=== PATIENT | female | born 1960 | race Two or more races ===

== ENCOUNTER 2019-01-12 05:56 | Day surgery (SDC) | payer OTHER ==
[~2019-01-12] VITALS: Ht 154.9 cm; Wt 59.0 kg
[2019-01-12] VITALS (10 sets, daily range): BP systolic 110–134; BP diastolic 62–82
[~2019-01-12 05:56] MED LIST: ESTRADIOL2 M1 PO; MULTIVITAMINS1 EAC2 ORAL; NALTREXONE HCL50 MG PO; PRILOSEC OTC20 MG ORAL; PROGESTERONE100 MG PO; PROSCAR5 MG ORAL; ZYRTEC-D TABLE1 EACH ORAL; plaquenil PO; viviscal PO
[2019-01-12] MEDS ORDERED: oxyCONTIN 20mg tab ORAL ONE (06:00)
[2019-01-12] MEDS ORDERED: celeBREX 200mg Cap **SURGERY PATIENTS ONLY ORAL ONE (06:00)
[2019-01-12] MEDS ORDERED: ceFAZolin 1gm IVPB IVPB ONE ×2 (06:00)
[2019-01-12] MEDS ORDERED: EPINEPHrine 1mg/1ml Amp ONE (06:59)
[2019-01-12] MEDS ORDERED: Ropivacaine 5mg/ml Vial 30ml INJ ONE (06:59)
[2019-01-12] MEDS ORDERED: LR 1000ml 1,000 ML IVLG SCH (07:02)
--- NOTE | 2019-01-12 07:07 | Anethesia Preoperative Eval ---
Anesthesia Pre-op PMH/ROS General Date of Evaluation: Jan 12, 2019 Time of Evaluation: 07:33 Anesthesiologist: Shawanda Singh ASA Score: ASA 2 Mallampati Score Class I : Soft palate, uvula, fauces, pillars visible Class II: Soft palate, uvula, fauces visible Class III: Soft palate, base of uvula visible Class IV: Only hard plate visible Mallampati Classification: Class II Surgeon: Jeffries Diagnosis: L Shoulder Pain L Shoulder Arthroscopy, RCR Anesthesia History: none Family History: no anesthesia problems Allergies: Coded Allergies: No Known Allergies (Unverified , 01/07/19) Medications: see eMAR Patient NPO?: Yes Past Medical History Pulmonary: Reports: asthma Gastrointestinal/Genitourinary: Reports: GERD Hematology/Immune: Reports: other - Lichen Planus PSxH Narrative: KENDRICK, Cholecystectomy, Hernia, R Shoulder SX Anesthesia Pre-op Phys. Exam Physician Exam Last Vital Signs Date Time Temp Pulse Resp B/P (MAP) Pulse Ox O2 Delivery O2 Flow Rate FiO2 01/12/19 06:40 Room Air 01/12/19 06:33 97.5 64 18 134/82 100 Constitutional: NAD Neurologic: CN 2-12 intact Cardiovascular: RRR Respiratory: CTA Gastrointestinal: S/NT/ND Airway Exam Mallampati Score: Class II MO: full ROM: limited Teeth: missing, intact Anesthesia Pre-op A/P Risk Assessment & Plan Assessment: ASA 2 Plan: GA, SED, GlideScope Go Status Change Before Surgery: No Pre-Antibiotics Dru Gram Ancef IV Given Within 1 Hr of Incision: Yes Time Given: 08:06 Efrain Rogers MD Jan 12, 2019 07:07
--- NOTE | 2019-01-12 07:07 | Pre-Procedure Note/Attestation ---
Pre-Procedure Note/Attestation Complete Prior to Procedure Planned Procedure: left Procedure Narrative: left shoulder scope sad mini joseph rtc repair Indications for Procedure Pre-Operative Diagnosis: left shoulder rtc tear Attestation I attest that I discussed the nature of the procedure; its benefits; risks and complications; and alternatives (and the risks and benefits of such alternatives ), prior to the procedure, with the patient (or the patient's legal printing supplies sales representative). I attest that, if there was a reasonable possibility of needing a blood transfusion, the patient (or the patient's legal printing supplies sales representative) was given the [facility] standardized written summary, pursuant to the Vadim Khanh Blood Safety Act ([place] Health and Safety Code # 1645, as amended). I attest that I re-evaluated the patient just prior to the surgery and that there has been no change in the patient's H&P, except as documented below: none Bishnu Leggett MD Jan 12, 2019 07:07
[2019-01-12] MEDS ORDERED: Dexamethasone 4mg/ml vial ONE (07:08)
[2019-01-12] MEDS ORDERED: Lidocaine 1% MPF 10mg/ml 5ml ONE (07:08)
[2019-01-12] MEDS ORDERED: Sodium Chloride 10ml vial INJ ONE (07:08)
[2019-01-12] MEDS ORDERED: Propofol 200mg/20ml IV ONE (07:08)
[2019-01-12] MEDS ORDERED: Bupivacaine w/Epi 0.5% 30ml Vial INJ ONE (07:14)
[2019-01-12] MEDS ORDERED: Midazolam 2mg/2ml Inj IVP PRN (07:15)
[2019-01-12] MEDS ORDERED: Metoclopramide 10mg/2ml Inj IVP PRN (07:15)
[2019-01-12] MEDS ORDERED: LORazepam Inj 2mg/ml 1ml IV PRN (07:15)
[2019-01-12] MEDS ORDERED: DiphenhydrAMINE 50mg/ml Inj IVP PRN (07:15)
[2019-01-12] MEDS ORDERED: Ketorolac 30mg Inj IV PRN ×2 (07:15)
[2019-01-12] MEDS ORDERED: Tylenol #3 tab (300mg/30mg) ORAL PRN (07:15)
[2019-01-12] MEDS ORDERED: Hydromorphone 0.5mg/0.5ml inj IVP PRN (07:15)
[2019-01-12] MEDS ORDERED: Atropine Sulfate 0.4mg/ml inj IVP PRN (07:15)
[2019-01-12] MEDS ORDERED: Meperidine 50mg/ml Inj(FOR RIGORS ONLY) IVP PRN (07:15)
[2019-01-12] MEDS ORDERED: HYDROcodone/Acetamin 5/325 tab ORAL PRN ×2 (07:15)
[2019-01-12] MEDS ORDERED: Labetalol 5mg/ml 20ml vial IV PRN (07:15)
[2019-01-12] MEDS ORDERED: HYDROcodone/Acetamin 7.5/325 tab ORAL PRN (07:15)
[2019-01-12] MEDS ORDERED: HYDROmorphone 1mg/ml Carpuject SUBQ PRN (07:15)
[2019-01-12] MEDS ORDERED: fentaNYL 100 mcg/2 mL IV PRN (07:15)
[2019-01-12] MEDS ORDERED: oxyCODONE HCL/Acetaminophen 5/325mg ORAL PRN (07:15)
[2019-01-12] MEDS ORDERED: Sterile Water Irrig 1000ml IRRIG ONE (07:30)
[2019-01-12] MEDS ORDERED: LR 1000ml ONE (07:30)
[2019-01-12] MEDS ORDERED: Pantoprazole Inj ONE (07:45)
[2019-01-12] MEDS ORDERED: NS Irrig 4000ml IRRIG ONE ×6 (08:16→09:24)
[2019-01-12] MEDS ORDERED: Alfentanil 2ml Inj ONE (08:39)
--- NOTE | 2019-01-12 08:49 | Immediate Post-Op Evaluation ---
Immediate Post-Op Evalulation Immediate Post-Op Evalulation Procedure: L Shoulder Arthroscopy Date of Evaluation: Jan 12, 2019 Time of Evaluation: 10:05 IV Fluids: 1000 LR Blood Products: 0 Estimated Blood Loss: 10 Urinary Output: 0 Blood Pressure Systolic: 127 Blood Pressure Diastolic: 64 Pulse Rate: 80 Respiratory Rate: 16 O2 Sat by Pulse Oximetry: 100 Temperature (Fahrenheit): 97 Pain Score (1-10): 2 Nausea: No Vomiting: No Complications 0 Patient Status: awake, reacts, patent, extubated, none Hydration Status: adequate Dru Gram Ancef IV Given Within 1 Hr of Incision: Yes Time Given: 08:06 Efrain Rogers MD Jan 12, 2019 08:49
--- NOTE | 2019-01-12 08:49 | 48 Hour Post Anesthesia Eval ---
Post Anesthesia Evaluation Procedure: L Shoulder Arthroscopy Date of Evaluation: Jan 12, 2019 Time of Evaluation: 12:13 Blood Pressure Systolic: 125 0: 64 Pulse Rate: 79 Respiratory Rate: 18 Temperature (Fahrenheit): 99 O2 Sat by Pulse Oximetry: 97 Airway: patent Nausea: No Vomiting: No Pain Intensity: 2 Hydration Status: adequate Cardiopulmonary Status: Stable Mental Status/LOC: patient returned to baseline Follow-up Care/Observations: 0 Post-Anesthesia Complications: 0 Follow-up care needed: ready to discharge Efrain Rogers MD Jan 12, 2019 08:49
--- NOTE | 2019-01-12 09:41 | Brief Operative Note ---
Immediate Post Operative Note Operative Note Chief Complaint: left shoulder pain Pre-op Diagnosis: left shoulder rtc tear Procedure: left shoulder scope, sad, mini joseph, rtc repair Post-op Diagnosis: same as pre-op Findings: consistent w/pre-op dx studies Surgeon: md lokesh Bailing Machine Operator: luis quach Anesthesiologist: md adrian Anesthesia: general Specimen: none Complications: none Condition: stable Fluids: ns Estimated Blood Loss: minimal Drains: none Implant(s) used?: Yes - biomet Bishnu Leggett MD Jan 12, 2019 09:41
[2019-01-12] MEDS ORDERED: Phenylephrine 10mg/ml Vial ONE (10:32)
[2019-01-12] MEDS ORDERED: D5 1/2NS 1,000 ML IV SCH (12:00)
--- NOTE | 2019-01-12 13:30 | Operative Note - Dictated ---
DATE OF OPERATION: 01/12/2019 PREOPERATIVE DIAGNOSES: 1. Left shoulder impingement. 2. Left shoulder rotator cuff tear. POSTOPERATIVE DIAGNOSES: 1. Left shoulder anterior as well as superior labral tearing without detachment of the glenoid. 2. Left shoulder full thickness 1-1/2 cm rotator cuff tear. 3. Left shoulder large bone spur with impingement. 4. Bone spur underneath the AC joint. PROCEDURE: 1. Left shoulder arthroscopy and extensive intra-articular shaving. 2. Left shoulder subacromial bursoscopy, bursectomy, and subacromial decompression. 3. Left shoulder mini Dania procedure (resection of inferior 30% of the distal end of the clavicle for coplaning). 4. Left shoulder debridement/repair of the anterior as well as superior labrum to a stable zone without anchor fixation. 5. Left shoulder arthroscopic rotator cuff repair using two Biomet 2.9 mm JuggerKnot anchors. SURGEON: Bishnu Leggett M.D. SCIENTIFIC DIVER: Violeta Pichardo PA-C. Subgrade Roller Operator was present during the actual operative portion of the case and was important and essential part of the operation. During the operation, the expanded function dental assistant held and operated the arthroscopic camera for visualization, assisted by manipulating the arm to help with visualization, and helped with essential parts of the repair process as necessary such as operating surgical instruments under surgeon supervision, suture management, and wound closures. ANESTHESIOLOGIST: Efrain Rogers M.D. ANESTHESIA: General LMA anesthesia. ESTIMATED BLOOD LOSS: Minimal. COMPLICATIONS: None. SURGICAL INDICATION: The patient is a 58-year old female, who sustained the above injury to her shoulder. The patient was treated non-operative initially, but this did not alleviate the patients symptoms. Therefore, after discussing all non-surgical and surgical options, and discussing all foreseeable risk and benefits of surgery, the patient opted for surgical treatment as described above. PATIENT POSITIONING: The patient was brought to the operating room table and was placed on the operating room table. All pressure points were well padded. General anesthesia was induced and patient was then placed in the lateral decubitus position. All pressure points were well padded again and an axillary roll was placed. Patient shoulder was then prepped and draped in the usual sterile fashion. Time out was performed and the appropriate preoperative antibiotic was given by the anesthesiologist. EXAMINATION OF SHOULDER UNDER ANESTHESIA: The shoulder was examined under anesthesia with all muscles well relaxed. The shoulder was forward flexed, abducted and was placed through full range of external and internal rotation. The anterior, posterior, and inferior stability of the shoulder was checked. The exam revealed no evidence of adhesive capsulitis and no evidence of instability. PORTAL PLACEMENT: The posterior portal was established 2 cm inferior and 1 cm medial to the edge of the posterior acromion. A 1 cm skin incision was made using an #11 blade and using the blunt obturator, the cannula was gently placed through the capsule. The mid-glenoid portal was established just lateral to the coracoid process under direct visualization. Direction of the cannula was first established using a spinal needle, and subsequently, the cannula was placed through the capsule with a blunt obturator. DIAGNOSTIC ARTHROSCOPY: The biceps tendon was probed and pulled through the joint for visualization. It appeared normal. The biceps anchor was palpated with a probe and was visualized. There was extensive fraying and tearing of the superior labrum, but there was no detachment of the glenoid. The biceps itself was intact. The posterior labrum and axillary recess was visualized. This was normal and there was no evidence of loose cartilage or fragments in this area. The glenoid articular surface was visualized and it appeared normal. The articular surface of the rotator cuff was visualized and probed next. There was a full-thickness tear in the rotator cuff measuring 1 cm. This was marked using a PDS suture. The humeral head articular surface was then visualized. There was no evidence of articular cartilage damage. Next, the anterior labrum, middle glenohumeral ligament, subscapularis tendon, and the anterior inferior glenohumeral ligament were evaluated. There was anterior labral tearing and fraying, although no detachment of the glenoid. The subscapularis anterior, inferior, glenohumeral ligaments were intact. At this point, the scope was moved to the mid-glenoid portal and the posterior structures including the posterior labrum, posterior capsule and posterior cuff were visualized. These structures were completely normal. The subscapularis recess was devoid of any loose bodies and the anterior capsule was well attached to the humeral neck. The middle and anterior inferior glenohumeral ligament was visualized. These structures were completely normal. OPERATIVE DEBRIDEMENTS AND REPAIR: Care was given to all partial thickness tears and frayed structures in the shoulder joint. The frayed rotator cuff and labrum was debrided using a shaver initially through the anterior portal and subsequently through the posterior portal to complete the debridement. This allowed for smooth debridement of all affected structures and all loose fragments were removed. DIAGNOSTIC BURSOSCOPY AND SUBACROMIAL DECOMPRESSION: The subacromial bursa was entered from the posterior portal. The anterior portal was established under the CA ligament using a switching stick. Subacromial arthroscopy was initiated. There was extensive bursitis and thickened and inflamed bursa tissue present. The CA ligament appeared to be scuffed and frayed. The shaver was placed through the anterior cannula and debridement of the hypertrophic bursa tissue was accomplished. Once visualization was adequate, a lateral portal was established using a blunt trochar in the mid portion of the acromion bone in the anterior-posterior direction and approximately 2 cm lateral to the lateral edge of the acromion. Using combination of shaver and electrocautery the CA ligament was released from the undersurface of the acromion and a complete bursectomy was accomplished. At this point, a subacromial decompression was performed using a kvng initially taking off 5-8 mm of the anterolateral edge of the acromion from the lateral portal and viewing from the posterior portal. Then the lateral border of the undersurface of the acromion was decompressed to the same dept as the anterolateral edge. A posterior trough was then created in the acromion in line with the posterior edge of the clavicle. At this point, the scope was placed in the lateral portal and the subacromial decompression was performed from the posterior portal decompressing the undersurface of the acromion to dept of 5-8 mm. The decompression was performed anterior to the previously marked trough all the way medially to the level of the AC joint. At all times, care was given not to take off too much bone in order to avoid risk of fracture of the acromion. An excellent subacromial decompression was performed in this fashion. At this point, the bursal side of the rotator cuff was examined. All the bursa over the rotator cuff was removed and the rotator cuff was examined with a probe. The arm was placed into external rotation, neutral, and then internal rotation and there was evidence of a full-thickness rotator cuff tear measuring 1.5 cm. The scope was then placed in the posterior portal and the subacromial decompression was rechecked to assure there is no area of bone spur that would be still impinging onto the rotator cuff. EVALUATION OF DISTAL CLAVICLE AND DISTAL CLAVICLE RESECTION: Care was given to the distal end of the clavicle. Using electrocautery and roger, the distal end of the bursa and soft tissue around the distal end of the clavicle was debrided and cleaned. Care was given not to inflict excessive trauma to the ligaments of the AC joint. The distal end of the clavicle appeared to have an inferior osteophyte extending down well bellow the level of the acromion at the level of the AC joint. This appeared to be impinging onto the supraspinatus muscle belly and the musculotendinous junction of the rotator cuff. A mini-Dania procedure was performed by using a kvng to resect the inferior 30% of the distal end of the clavicle. This decompression allowed space for the inferior structures to slide without impingement. This co-plained the inferior edge of the distal clavicle with the inferior edge of the acromion. For rotator cuff repair, the scope was placed in the lateral portal and the rotator cuff was visualized. The rotator cuff revealed a non-retracted rotator cuff tear. The rotator cuff foot print adjacent to the articular cartilage of the humeral head was identified. This area was debrided initially using roger and subsequently using kvng to provide adequate bleeding bony surface to accept the rotator cuff tendon. Attention was given to repair the rotator cuff with as little tension as possible. At this point, an arthroscopic punch was used to create holes for suture anchor placement at the medial edge of the foot print through separate stab wound incisions and an arthroscopic tap was used to prepare the holes. Two Biomet 2.9 mm JuggerKnot anchors double loaded with two #2 non-absorbable strong sutures were placed in previously prepared holes. Using standard arthroscopic suture passing instruments, the sutures were passed through the edge of rotator cuff with minimal trauma to the cuff tissue. Care was given to obtain large enough bites of the rotator cuff for the sutures to hold well. Once the sutures were passed through the cuff, the repair was secured onto the rotator cuff foot print using SMC sliding knots followed by 3 alternating-post half hitches. This allowed tension free repair of the rotator cuff with excellent stability and water tight closure. The cuff repair security was assured by palpating the repair with a probe. CONDITION AT DISCHARGE FROM OPERATING ROOM: The skin was re-approximated and sterile dressing and sling were applied. All lap counts and instrument counts were correct. The patient tolerated the procedure well without complications and was taken to the recovery room in stable conditions. Bishnu Leggett M.D. DR: CARLIN JOB#: [id number] CC:
== END 2019-01-12 12:25 | disposition home or self-care (01) ==
LOC: SUR 05:56
DX: M75.122 Complete rotator cuff tear or rupture of left shoulder, not specified as traumatic (principal); M75.42 Impingement syndrome of left shoulder; M77.9 Enthesopathy, unspecified; K21.9 Gastro-esophageal reflux disease without esophagitis; Z90.49 Acquired absence of other specified parts of digestive tract; Z90.89 Acquired absence of other organs; Z90.721 Acquired absence of ovaries, unilateral; Z90.710 Acquired absence of both cervix and uterus; Z87.891 Personal history of nicotine dependence; Z79.899 Other long term (current) drug therapy
CPT/HCPCS: 29823; 29824; 29827; C9113; J0171; J0690; J1100; J1885; J2250; J2370; J2405; J2704; J2795; J3490; 94003; 94150; C1713